=== PATIENT | female | born 1980 | race Asian ===

== ENCOUNTER → 2017-01-26 | Outpatient (CLI) | payer OTHER | LOC: CIMAGING 14:09 | PROVIDERS: ATTEND Otolaryngology | DX: J32.4 Chronic pansinusitis (principal) | CPT/HCPCS: 70486-PO ==

== ENCOUNTER → 2017-03-23 | Outpatient (CLI) | payer OTHER ==
[~2017-03-23] MED LIST: GADOBUTROL 10 ML VIAL IVP ONE
== END ==
LOC: FIMAGING 14:21
PROVIDERS: ATTEND Otolaryngology
DX: R93.0 Abnormal findings on diagnostic imaging of skull and head, not elsewhere classified (principal)
CPT/HCPCS: A9585

== ENCOUNTER → 2017-10-27 | Outpatient (CLI) | payer OTHER | LOC: FIMAGING 15:18 | PROVIDERS: ATTEND Physician Assistant | DX: D32.0 Benign neoplasm of cerebral meninges (principal); J32.0 Chronic maxillary sinusitis | CPT/HCPCS: A9585 ==

== ENCOUNTER → 2018-06-15 | Outpatient (CLI) | payer OTHER | LOC: FIMAGING 14:20 | PROVIDERS: ATTEND Midwife | DX: N64.4 Mastodynia (principal) ==

== ENCOUNTER → 2018-12-06 | Outpatient (CLI) | payer OTHER | LOC: CIMAGING 09:21 | PROVIDERS: ATTEND Otolaryngology | DX: J32.4 Chronic pansinusitis (principal); J33.9 Nasal polyp, unspecified | CPT/HCPCS: 70486-PO ==